=== PATIENT | female | born 1960 | race Hispanic/Latino ===

== ENCOUNTER 2016-10-26 18:46 | Observation (INO) | payer MEDICARE, MEDICAID ==
[2016-10-26] MEDS ORDERED: Albuterol-Ipratrop 3 mg / 0.5 (3 ml) UD ONE ×3 (19:17→22:23)
[2016-10-26] MEDS: Albuterol-Ipratrop 3 mg / 0.5 (3 ml) UD IH SCH ×2 (20:41→22:47)
[2016-10-26 20:46] LABS: BASO # 0.1 K/uL (0.0-0.2); BASO % 0.7 % (0.0-2.0); EOS # 0.4 K/uL (0.0-0.7); EOS % 4.7 % (0.0-4.0); HEMATOCRIT 43.7 % (34.0-47.0); LYMPH # 4.2 K/uL (1.0-4.3); LYMPH % 46.4 % (20.0-40.0); MEAN CELL VOLUME 90.5 fL (81.0-99.0); MEAN CORPUSCULAR HGB CONC 34.2 g/dL (33.0-37.0); MEAN PLATELET VOLUME 7.9 fL (7.2-11.7); MONO # 0.6 K/uL (0.0-0.8); MONO % 6.6 % (0.0-10.0); NRBC % 0.1 % (0.0-2.0); RED CELL DISTRIBUTION WIDTH 14.2 % (11.5-14.5); WHITE BLOOD COUNT 9.1 K/uL (4.8-10.8)
[2016-10-26 20:54] LABS: CHLORIDE 102 mmol/L (98-107)
[2016-10-26 20:55] LABS: POTASSIUM 3.7 mmol/L (3.6-5.2); SODIUM 140 mmol/L (132-148)
[2016-10-26 20:57] LABS: ALB/GLOB RATIO 1.4 (1.0-2.1); ALKALINE PHOSPHATASE 105 U/L (38-126); AST/SGOT 135 U/L (14-36); BILIRUBIN,TOTAL 0.5 mg/dL (0.2-1.3); BLOOD UREA NITROGEN 5 mg/dL (7-17); CARBON DIOXIDE 24 mmol/L (22-30); GFR AFRICAN-AMERICAN > 60; GLUCOSE,RANDOM 106 mg/dL (65-105); TOTAL PROTEIN 7.1 g/dL (6.3-8.3)
[2016-10-26 20:58] LABS: ALT/SGPT 174 U/L (9-52); CALCIUM 8.9 mg/dl (8.6-10.4)
[2016-10-26 21:14] LABS: FREE T4 1.11 ng/dL (0.78-2.19)
[2016-10-26 21:28] LABS: THYROID STIMULATING HORMONE 1.23 mIU/L (0.46-4.68)
--- NOTE | 2016-10-26 22:14 | C.PDOC ---
Time Seen by Provider: 10/26/16 20:08 Chief Complaint (Nursing): Shortness Of Breath History Per: Patient Onset/Duration Of Symptoms: Days (3) Current Symptoms Are (Timing): Still Present Current Respiratory Medications: See Home Med List Severity: Moderate Associated Symptoms: Chest Pain, Productive Cough Recent travel outside of the [place]: No Additional History Per: Prior Records Past Medical History Reviewed: Historical Data, Nursing Documentation, Vital Signs Vital Signs: Last Vital Signs Temp 97.6 F 10/26/16 19:32 Pulse 84 10/26/16 19:32 Resp 18 10/26/16 19:32 BP 110/64 10/26/16 19:32 Pulse Ox 100 10/26/16 22:16 - Medical History PMH: Anxiety, Asthma, Depression, HTN, Rheumatoid Arthritis Family History: States: Unknown Family Hx - Social History Hx Tobacco Use: Yes Hx Alcohol Use: Yes Hx Substance Use: No Review Of Systems Except As Marked, All Systems Reviewed And Found Negative. Constitutional: Negative for: Fever, Weakness Cardiovascular: Positive for: Chest Pain Respiratory: Positive for: Cough, Shortness of Breath, Sputum, Wheezing. Negative for: Hemoptysis Gastrointestinal: Positive for: Nausea. Negative for: Vomiting, Abdominal Pain Musculoskeletal: Negative for: Neck Pain Skin: Negative for: Rash Neurological: Negative for: Weakness, Numbness Physical Exam - Physical Exam Appears: In Acute Distress (mild) Skin: Normal Color, Warm, Dry Head: Atraumatic, Normacephalic Eye(s): bilateral: PERRL, EOMI Neck: Normal ROM, Supple Cardiovascular: Rhythm Regular Respiratory: No Accessory Muscle Use, Wheezing Gastrointestinal/Abdominal: Soft, No Tenderness Back: No CVA Tenderness Extremity: Normal ROM, Pedal Edema (mild) Neurological/Psych: Oriented x3, Normal Motor, Normal Sensation ED Course And Treatment - Laboratory Results Result Diagrams: 10/26/16 20:38 10/26/16 20:20 Interpretation Of Abnormal: Elevated transaminase levels. ECG: Interpreted By Me, Viewed By Me ECG Rhythm: Sinus Rhythm ECG Interpretation: No Acute Changes Rate From EC O2 Sat by Pulse Oximetry: 100 Pulse Ox Interpretation: Normal - Radiology CXR: Interpreted by Me, Viewed By Me CXR Interpretation: Yes: No Acute Disease - Physician Consult Information Physician Contacted: Eleno Dan (Pulmonary) Outcome Of Conversation: He gave orders to the nurse. Progress - Interventions Interventions:: Observation - Medications Administered Inhaled nebulized: Anticholinergic, Beta-2 agonist Intravenous: Corticosteroid - Data Reviewed Data Reviewed: Lab, Diagnostic imaging, EKG, Old records - Patient Status Patient status: Partially improved - Critical Care Citical Care: Excluding Proc Time Critical Care Time: 45 minutes - Continuity of Care Discussed patient case with:: Patient, ED Nurse, PMD Discussed pt. case with foreign law consultant/specialty: Pulmonary/Crit. Care Disposition Discussed With Dr.: Chance Donaldson Comment: He accepted pt on his service. He wants Dr. Eleno Dan to be consulted. Doctor Will See Patient In The: Hospital Counseled Patient/Family Regarding: Studies Performed, Diagnosis, Smoking Cessation - Disposition Disposition: HOSPITALIZED Disposition Time: 22:22 Condition: FAIR - Clinical Impression Clinical Impression: COPD exacerbation
[2016-10-26 22:56] LABS: ABG ALLEN TEST POS; ARTERIAL BLOOD HGB O2 SAT 92.1 % (95.0-98.0); CARBOXYHEMOGLOBIN 3.9 % (0.5-1.5); DRAW SITE RRADIAL; HHB 2.9 % (0.0-5.0); METHEMOGLOBIN 1.1 % (0.0-3.0)
[2016-10-26] MEDS ORDERED: Piperacillin/Tazobact 3.375 gm 100 ML IVPB ONE (23:05)
[2016-10-26 23:07] LABS: URINE BILIRUBIN NEGATIVE (NEGATIVE); URINE BLOOD NEGATIVE (NEGATIVE); URINE COLOR Straw (YELLOW); URINE GLUCOSE (UA) NORMAL (Normal); URINE KETONE NEGATIVE (NEGATIVE); URINE LEUKOCYTE ESTERASE NEG Leu/uL (Negative); URINE PROTEIN NEGATIVE (NEGATIVE); URINE UROBILINOGEN NORMAL mg/dL (0.2-1.0); WBC URINE < 1 /hpf (0-5)
[2016-10-26] MEDS: Piperacill/Tazo 3.375gm in Dex 3.375 GM/50 ML BAG IVPB SCH (23:12)
[2016-10-27] MEDS: Piperacill/Tazo 3.375gm in Dex 3.375 GM/50 ML BAG IVPB SCH ×2 (05:18→11:13)
[2016-10-27] MEDS: MethylPREDNISolone 40 mg Vial IVP SCH ×2 (06:11→14:03)
[2016-10-27] MEDS: Albuterol 0.083% Inhal Sol (2.5 mg/3 mL) UD INH SCH ×4 (06:16→15:38)
--- NOTE | 2016-10-27 08:19 | RAD ---
PROCEDURE: CHEST RADIOGRAPH, 1 VIEW HISTORY: SOB COMPARISON: None available. FINDINGS: LUNGS: Suboptimal study due to the patient's body habitus. No definite evidence of focal infiltrate or consolidation. PLEURA: No pneumothorax or pleural fluid seen. CARDIOVASCULAR: Normal. OSSEOUS STRUCTURES: No significant abnormalities. VISUALIZED UPPER ABDOMEN: Normal. OTHER FINDINGS: None. IMPRESSION: Suboptimal study due to portable technique and patient's body habitus.
[2016-10-27 15:34] VITALS: BP 146/78; PULSE 78; RESP 20; TEMP 97.6; O2SAT 97
--- NOTE | 2016-10-27 18:07 | CP.PCM.PN ---
Subjective - Date & Time of Evaluation Date of Evaluation: 10/27/16 Time of Evaluation: 11:00 - Subjective Subjective: Alert, awake, no sob or chest pains, lungs clear, NAD. Objective - Vital Signs/Intake and Output Vital Signs (last 24 hours): Temp Pulse Resp BP Pulse Ox 97.6 F 78 20 146/78 97 10/27/16 15:30 10/27/16 15:30 10/27/16 15:30 10/27/16 15:30 10/27/16 15:30 Intake and Output: 10/27/16 10/27/16 06:59 18:59 Intake Total 450 Balance 450 Assessment and Plan - Assessment and Plan (Free Text) Assessment: Patient admitted with COPD, seen and examined. Alert and orientedx3, denies sob or chest pains. Seen by DR Donaldson, plan to discharge home today on medrol dose pack. Advised to follow up in the office in 1 week.
--- NOTE | 2016-10-27 19:33 | CP.PCM.HP ---
History of Present Illness - History of Present Illness History of Present Illness: Patientbrought to ER by ambulsance with ldt sided chest pain, wheezing and anxiousness Patient advised admission for observation. Past history of bronchial asthma, degenerative arthritis and anxiety. Present on Admission - Present on Admission Any Indicators Present on Admission: No History of DVT/PE: No History of Uncontrolled Diabetes: No Urinary Catheter: No Decubitus Ulcer Present: No History Surgical Site Infection Following: None Review of Systems - Constitutional Constitutional: Sleep Apnea - Cardiovascular Cardiovascular: Chest Pain - Respiratory Respiratory: Wheezing - Menstruation Menstruation: Menopausal - Musculoskeletal Musculoskeletal: Arthralgias - Integumentary Integumentary: Dry Skin - Neurological Neurological: Burning Sensations - Psychiatric Psychiatric: Panic Attacks - Endocrine Endocrine: Fatigue Past Patient History - Tetanus Immunizations Tetanus Immunization: Up to Date - Past Medical History & Family History Past Medical History?: Yes - Past Social History Smoking Status: Light Smoker < 10 Cigarettes Daily Chewing Tobacco Use: No Cigar Use: No Alcohol: Occasional - CARDIAC Hx Cardiac Disorders: Yes Hx Hypertension: Yes - PULMONARY Hx Respiratory Disorders: Yes Hx Asthma: Yes Hx Bronchitis: Yes - NEUROLOGICAL Hx Neurological Disorder: No - HEENT Hx HEENT Problems: No - RENAL Hx Chronic Kidney Disease: No - ENDOCRINE/METABOLIC Hx Endocrine Disorders: No - HEMATOLOGICAL/ONCOLOGICAL Hx Blood Disorders: No - INTEGUMENTARY Hx Dermatological Problems: No - MUSCULOSKELETAL/RHEUMATOLOGICAL Hx Musculoskeletal Disorders: Yes Hx Falls: No Hx Rheumatoid Arthritis: Yes - GASTROINTESTINAL Hx Gastrointestinal Disorders: No - GENITOURINARY/GYNECOLOGICAL Hx Genitourinary Disorders: No - PSYCHIATRIC Hx Psychophysiologic Disorder: Yes Hx Anxiety: Yes Hx Depression: Yes Hx Panic Symptoms: Yes Hx Substance Use: No - SURGICAL HISTORY Hx Surgeries: Yes Hx Section: Yes (2x) - ANESTHESIA Hx Anesthesia: Yes Hx Anesthesia Reactions: No Hx Malignant Hyperthermia: No Has any member of the family had a problem w/ anesthesia?: No Meds Home Medications: Home Medication List Medication Instructions Recorded Confirmed Type Methylprednisolone [Medrol Dose 4 mg PO DAILY #21 mg 10/27/16 Rx Pack (21 tabs)] Allergies/Adverse Reactions: Allergies Allergy/AdvReac Type Severity Reaction Status Date / Time No Known Allergies Allergy Unverified 10/26/16 19:26 Physical Exam - Constitutional Appears: No Acute Distress - Head Exam Head Exam: NORMAL INSPECTION - Eye Exam Eye Exam: Normal appearance Pupil Exam: NORMAL ACCOMODATION - ENT Exam ENT Exam: Normal Oropharynx - Neck Exam Neck exam: Positive for: Normal Inspection - Respiratory Exam Respiratory Exam: Wheezes - Cardiovascular Exam Cardiovascular Exam: REGULAR RHYTHM - GI/Abdominal Exam GI & Abdominal Exam: Normal Bowel Sounds - Rectal Exam Rectal Exam: Deferred - Exam External exam: NORMAL EXTERNAL EXAM - Back Exam Back exam: NORMAL INSPECTION - Neurological Exam Neurological exam: Oriented x3 - Psychiatric Exam Psychiatric exam: Anxious - Skin Skin Exam: Dry Results - Vital Signs Recent Vital Signs: Last Vital Signs Temp 97.6 F 10/27/16 15:30 Pulse 78 10/27/16 15:30 Resp 20 10/27/16 15:30 BP 146/78 10/27/16 15:30 Pulse Ox 97 10/27/16 15:30 - Labs Result Diagrams: 10/26/16 20:38 10/26/16 20:20 Labs: Laboratory Results - last 24 hr 10/26/16 10/26/16 10/27/16 22:36 22:50 08:34 Puncture Site Rradial pCO2 34 L pO2 69 L HCO3 22.5 ABG pH 7.40 ABG Total CO2 22.1 ABG O2 Saturation 96.9 ABG Base Excess -2.9 L ABG Hemoglobin 14.9 ABG Carboxyhemoglobin 3.9 H POC ABG HHb (Measured) 2.9 ABG Methemoglobin 1.1 Blane Test Pos A-a O2 Difference 38.0 Respiratory Index 0.6 Hgb O2 Saturation 92.1 L FiO2 21.0 Total Creatine Kinase 65 CK-MB (Mass) 1.09 Troponin I, Quant < 0.0120 Urine Color Straw Urine Clarity Clear Urine pH 6.0 Ur Specific [place] 1.003 Urine Protein Negative Urine Glucose (UA) Normal Urine Ketones Negative Urine Blood Negative Urine Nitrate Negative Urine Bilirubin Negative Urine Urobilinogen Normal Ur Leukocyte Esterase Neg Urine WBC (Auto) < 1 10/27/16 13:51 Puncture Site pCO2 pO2 HCO3 ABG pH ABG Total CO2 ABG O2 Saturation ABG Base Excess ABG Hemoglobin ABG Carboxyhemoglobin POC ABG HHb (Measured) ABG Methemoglobin Blane Test A-a O2 Difference Respiratory Index Hgb O2 Saturation FiO2 Total Creatine Kinase 48 CK-MB (Mass) 0.96 Troponin I, Quant < 0.0120 Urine Color Urine Clarity Urine pH Ur Specific [place] Urine Protein Urine Glucose (UA) Urine Ketones Urine Blood Urine Nitrate Urine Bilirubin Urine Urobilinogen Ur Leukocyte Esterase Urine WBC (Auto) Assessment & Plan (1) Chest pain Status: Acute (2) Panic attack Status: Acute (3) COPD exacerbation Status: Acute
== END 2016-10-27 04:35 | disposition home or self-care (01) ==
LOC: C.ER 18:46 → C.6T 22:27 → C.9E 22:27
PROVIDERS: ADMIT Internal Medicine; ATTEND Internal Medicine
DX: J44.1 Chronic obstructive pulmonary disease with (acute) exacerbation (principal); F41.0 Panic disorder [episodic paroxysmal anxiety]; I10 Essential (primary) hypertension; M06.9 Rheumatoid arthritis, unspecified; F17.210 Nicotine dependence, cigarettes, uncomplicated
CPT/HCPCS: 36415; 71010; 80053; 81001; 82803; 83880; 84439; 84443; 84484; 85025; 87040; 87070; 94640; 94760; 96365; 96374; 99285; G0378; J1644; J2543; J2920; J2930